=== PATIENT | male | born 1970 | race Caucasian/White ===

== ENCOUNTER 2018-02-03 06:06 | Day surgery (SDC) | payer OTHER ==
[2018-02-02 09:35] VITALS: BMI 29.7
--- NOTE | 2018-02-02 16:58 | HP ---
Admitting History and Physical - Admission Chief Complaint: Nasal obstruction History of Present Illness: 48 yo male with chronic nasal obstruction unrelieved with medical therapy. Pt noted to have deviated septum and enlarged turbinates. History Source: Patient Limitations to Obtaining History: No Limitations - Past Medical History ENT: Yes: Allergic Rhinitis - Past Surgical History Past Surgical History: Yes: None - Smoking History Smoking history: Never smoked Have you smoked in the past 12 months: No - Alcohol/Substance Use Hx Alcohol Use: Yes (SOCIAL) Home Medications - Allergies Allergies/Adverse Reactions: Allergies Allergy/AdvReac Type Severity Reaction Status Date / Time No Known Allergies Allergy Verified 05/24/14 13:23 - Home Medications Home Medications: Ambulatory Orders Oxymetazoline HCl [Nasal [place]] 30 ml NS HS 02/02/18 Review of Systems - Review of Systems HENT: reports: Nasal Congestion Respiratory: reports: Snoring Physical Examination Constitutional: Yes: Well Nourished Eyes: Yes: WNL HENT: Yes: Nasal Congestion, Other (deviated septum, enlarged turbinates with obstruction) Neck: Yes: WNL Cardiovascular: Yes: WNL Respiratory: Yes: WNL Neurological: Yes: Cran Nerves II-XII Intact Problem List - Problems (1) Deviated nasal septum Assessment/Plan: Pt with chronic nasal obstruction due to deviated septum and enlarged inferior turbinates. Pt presents for surgical correction with Septoplasty/SMR of inferior turbinates. Code(s): J34.2 - DEVIATED NASAL SEPTUM Assessment/Plan To OR for septo/SMR
[2018-02-03] MEDS ORDERED: COCAINE HCL 4% TOPICAL SOLUTION 4 ML BOTTLE TP ONE ×2 (07:45→08:18)
[2018-02-03] MEDS ORDERED: MIDAZOLAM HCL 2 MG/2 ML SINGLE DOSE VIAL ONE (07:55)
[2018-02-03] MEDS ORDERED: PROPOFOL 20 ML ONE (07:59)
[2018-02-03] MEDS ORDERED: ROCURONIUM BROMIDE 50 MG/5 ML VIAL ONE (08:00)
[2018-02-03] MEDS ORDERED: LIDOCAINE 1%/EPI 1:100000 (50 ML MULTI DOSE VIAL) INF ONE (08:17)
[2018-02-03] MEDS ORDERED: DESFLURANE GAS 240 ML BOTTLE IH ONE (08:18)
[2018-02-03] MEDS ORDERED: NEOSTIGMINE METHYLSULFATE 0.5 MG/ML - 10 ML MDV ONE (08:38)
[2018-02-03] MEDS ORDERED: BACITRACIN 15 GM TUBE TOPICAL OINTMENT ONE (09:01)
[2018-02-03] MEDS ORDERED: BACITRACIN 15 GM TUBE TOPICAL OINTMENT TP ONE (09:04)
[2018-02-03] MEDS ORDERED: ACETAMINOPHEN 325 MG TABLET (FP) PO PRN (09:21)
--- NOTE | 2018-02-03 09:21 | HP ---
History & Physical Update - History History: No Change - Physical Physical: No Change - Assessment Assessment: No Change - Plan Plan: No Change
[2018-02-03] MEDS ORDERED: PROMETHAZINE HCL 25 MG/1 ML VIAL IVPUSH PRN (09:31)
[2018-02-03] MEDS ORDERED: ONDANSETRON 4 MG/2 ML VIAL IVPUSH PRN (09:31)
[2018-02-03] MEDS ORDERED: oxyCODONE HCL 5 MG TABLET PO PRN (09:31)
[2018-02-03] MEDS ORDERED: LACTATED RINGERS SOLUTION 1,000 ML IV SCH (09:45)
--- NOTE | 2018-02-03 10:26 | OP ---
DATE OF OPERATION: 02/03/2018 PREOPERATIVE DIAGNOSES: 1. Nasal obstruction secondary to deviated nasal septum. 2. Bilateral inferior turbinate hypertrophy with obstruction. POSTOPERATIVE DIAGNOSES: 1. Nasal obstruction secondary to deviated nasal septum. 2. Bilateral inferior turbinate hypertrophy with obstruction. PROCEDURE: 1. Septoplasty. 2. Submucosal resection (SMR) of bilateral inferior turbinates. ANESTHESIA: General, Sue Roberson MD. BLOOD LOSS: 5 mL FINDINGS: 1. Markedly deviated nasal septum with fracture and large spur. 2. Bilateral inferior turbinate hypertrophy with obstruction. INDICATION: Patient is a 48-year-old male with a long history of chronic nasal obstruction unrelieved with medical therapy, who presents for surgical intervention. Risks, benefits, and alternatives of the procedure were all explained to the patient. Questions were answered, and consent was signed. DESCRIPTION OF PROCEDURE: After obtaining informed consent, patient was brought to the operating room, placed on the OR table in supine position. After induction of general endotracheal anesthesia, was prepped and draped in usual sterile fashion. Next, 4% soaked cocaine nasal pledgets were placed in the nasal cavity, followed by injection of 1% lidocaine with epinephrine into the nasal septal flaps and inferior turbinates. After allowing anesthesia to take effect, a number-15 blade was used to make a left hemitransfixion incision. A left mucoperichondrial flap was raised over the severe spur with slight tearing at the inferior aspect. Bony and cartilaginous septum was isolated. Incision was made anteriorly. Through this septal cartilage, a large dorsal caudal L strut was left intact. Opposite side flap was then raised intact. Deviated portion of the septum was then isolated. Using sharp dissection with a swivel knife, the obstructing portion of the cartilaginous septum was removed. The bony portion was removed with a rongeur and osteotome. Once completed, airway was markedly improved. There was no longer significant obstruction. The flaps were then reapproximated with a 4-0 plain gut, quilting stitch, followed by closure of the incision with a 4-0 chromic suture. No active bleeding was seen. Attention was then turned to the inferior turbinates. The left inferior turbinate was medialized. A stab incision was made at the anterior tip. Submucosal dissection was carried out with removal of the anterior portion of the turbinate bone. Submucosal cauterization with suction Bovie cautery was then performed. Flaps were then reapproximated and turbinate lateralized. Attention was then turned to the right inferior turbinate where again it was medialized. Stab incision was made at the anterior tip. Submucosal dissection was carried out with removal of soft tissue, followed by cauterization with the suction Bovie cautery. Again, once completed, flaps were reapproximated, turbinate lateralized. The airway appeared clear. Nasal cavity/nasopharynx was irrigated and suctioned. No active bleeding was seen. Firm Medipore nasal packing was placed, followed by a nasal tip dressing. This ended the procedure. Patient was then awoken from anesthesia, extubated, and transferred to the recovery room, awake, alert, in stable condition. HORTENSIA DAWSON M.D. [id number]
[2018-02-03] MEDS ORDERED: ONDANSETRON 4 MG/2 ML VIAL IVPUSH ONE (10:30)
[2018-02-03] MEDS ORDERED: PROMETHAZINE HCL 25 MG/1 ML VIAL IVPUSH ONE (11:15)
[2018-02-03 13:10] VITALS: TEMP 98.2
[2018-02-03 15:36] VITALS: BP 133/78; PULSE 70
--- NOTE | 2018-02-04 16:46 | PATH ---
Surgical Pathology Report Patient Name: ZONIA ARRINGTON Med. Rec. #: [id number] /Age/Gender: 1970 (Age: 48) / M Account: [id number] Location: [facility] SURGICAL Taken: 02/03/2018 Received: 02/03/2018 Reported: 02/04/2018 Physicians: Moe Munoz M.D. Specimen(s) Received SEPTUM AND TURBINATE Clinical History Deviated nasal septum, hypertrophy nasal turbinates Final Diagnosis SEPTUM AND TURBINATE, SEPTOPLASTY AND NASAL TURBINATE REDUCTION: FRAGMENTS OF BENIGN CARTILAGE, BONE, AND RESPIRATORY MUCOSA. Electronically Signed Rhiannon Fernández M.D. Gross Description Received in formalin, labeled "septum and turbinate" are multiple bone and cartilaginous tissue measuring 2.3 x 2.3 x 0.4 cm. in aggregate. The specimen is entirely submitted in toto in one cassette after calcification. YUE/02/03/2018 martha/02/03/2018
== END 2018-02-03 15:36 | disposition home or self-care (01) ==
LOC: JASU-SURG 06:06
PROVIDERS: ATTEND Otolaryngology
PROC: 09SM0ZZ Reposition Nasal Septum, Open Approach (ICD-10-PCS; principal; 2018-02-03 08:00)
DX: J34.2 Deviated nasal septum (principal); J34.89 Other specified disorders of nose and nasal sinuses; J34.3 Hypertrophy of nasal turbinates
CPT/HCPCS: 88304-TC; 88311-TC; 94760

== ENCOUNTER 2018-03-05 20:22 | Emergency (ER) | payer OTHER ==
[2018-03-05 20:40] VITALS: BMI 29.7
[2018-03-05] MEDS ORDERED: SODIUM CHLORIDE 1,000 ML IV STA (20:57)
[2018-03-05 21:22] LABS: BASO % 0.8 % (0-2.0); EOS % 4.6 % (0-4.5); HEMATOCRIT 40.3 % (35.4-49); HEMOGLOBIN 13.6 GM/dL (11.7-16.9); LYMPH % 51.3 % (8-40); MCH 31.8 pg (25.7-33.7); MCHC 33.7 g/dl (32.0-35.9); MEAN CELL VOLUME 94.4 fl (80-96); MEAN PLT VOLUME 8.8 fl (7.5-11.1); MONO % 4.9 % (3.8-10.2); NEUT % 38.4 % (42.8-82.8); PLATELET COUNT 213 K/MM3 (134-434); RBC 4.27 M/mm3 (4.00-5.60); RDW 13.4 % (11.9-15.9); WHITE BLOOD COUNT 4.6 K/mm3 (4.0-10.0)
--- NOTE | 2018-03-05 21:34 | PDOC ---
History of Present Illness - General Chief Complaint: Nasal Bleeding Stated Complaint: NOSE BLEED Time Seen by Provider: 03/05/18 20:24 History Source: Patient, Spouse Exam Limitations: No Limitations - History of Present Illness Initial Comments: 03/05/18 21:54 48m with pmh of chronic nasal obstruction due to deviated septum and enlarged inferior turbinates s/p surgical correction with Septoplasty/SMR of inferior turbinates a month ago by Dr. Moreno, presents to the ED by ems for epistaxis, resolved at the time of presentation. Had 3 less severe episodes yesterday, one more this morning, went to see Dr. Paz who put some pcking in his left nostil, then had a second episode today bleeding from left nostril again and mouth during which ems was called. Patient now feels weak. Past History - Past Medical History Allergies/Adverse Reactions: Allergies Allergy/AdvReac Type Severity Reaction Status Date / Time No Known Allergies Allergy Verified 03/05/18 20:39 Home Medications: Ambulatory Orders NK [No Known Home Medication] 03/05/18 Anemia: No Asthma: No Cancer: No Cardiac Disorders: No CVA: No COPD: No CHF: No Dementia: No Diabetes: No GI Disorders: No Disorders: No HTN: No Hypercholesterolemia: No Liver Disease: No Seizures: No Thyroid Disease: No - Suicide/Smoking/Psychosocial Hx Smoking History: Never smoked Have you smoked in the past 12 months: No Information on smoking cessation initiated: No Hx Alcohol Use: No Drug/Substance Use Hx: No Substance Use Type: None Review of Systems - Review of Systems Able to Perform ROS?: Yes Is the patient limited [place]ij[place] proficient: No Constitutional: Yes: Weakness HEENTM: Yes: Nose Bleeding, Throat Pain Respiratory: No: Symptoms reported Cardiac (ROS): No: Symptoms Reported ABD/GI: No: Symptoms Reported : No: Symptoms Reported Musculoskeletal: No: Symptoms Reported Integumentary: No: Symptoms Reported Neurological: No: Symptoms reported All Other Systems: Reviewed and Negative *Physical Exam - Vital Signs Last Vital Signs Temp Pulse Resp BP Pulse Ox 98.0 F 61 18 88/56 95 03/05/18 20:39 03/05/18 20:39 03/05/18 20:39 03/05/18 20:39 03/05/18 20:39 - Physical Exam General Appearance: Yes: Nourished, Appropriately Dressed, Mild Distress HEENT: positive: EOMI, JEREMÍAS, Other (dried blood in left nostil. no bleed currently) Respiratory/Chest: positive: Lungs Clear, Normal Breath Sounds. negative: Chest Tender, Respiratory Distress Cardiovascular: positive: Regular Rhythm, S1, S2, Bradycardia Gastrointestinal/Abdominal: positive: Normal Bowel Sounds, Flat, Soft. negative : Tender Musculoskeletal: positive: Normal Inspection. negative: CVA Tenderness Extremity: positive: Normal Capillary Refill, Normal Inspection, Normal Range of Motion Integumentary: positive: Normal Color, Dry, Warm Neurologic: positive: Fully Oriented, Alert, Normal Mood/Affect, Normal Response , Motor Strength 11/29 ED Treatment Course - LABORATORY CBC & Chemistry Diagram: 03/05/18 20:55 03/05/18 20:55 - ADDITIONAL ORDERS Additional order review: 03/05/18 20:55 RBC 4.27 MCV 94.4 MCHC 33.7 RDW 13.4 MPV 8.8 Neutrophils % 38.4 L Lymphocytes % 51.3 H Monocytes % 4.9 Eosinophils % 4.6 H Basophils % 0.8 Medical Decision Making - Medical Decision Making 03/05/18 22:02 EKG: Sinus bradycardia, otherwise normal. No anemia on labs, pending chem and coags. [facility] [employer] consultant for Dr. Paz called back, states patient can go home if not anemic. ok to follow up in office. Hypotension improving with NS fluids. 03/05/18 22:15 All labs negative. *DC/Admit/Observation/Transfer Diagnosis at time of Disposition: Epistaxis - Discharge Dispostion Disposition: HOME Condition at time of disposition: Stable Decision to Admit order: No - Referrals Referrals: Lillie Quach MD [Primary Care Provider] - - Patient Instructions Printed Discharge Instructions: DI for Nosebleed Additional Instructions: Follow up with Dr. Paz tomorrow. Come back to the ER for any new, worsening or concerning symptom. - Post Discharge Activity
[2018-03-05 21:50] LABS: INR 1.13 (0.83-1.09); PROTHROMBIN TIME (PATIENT) 12.8 SEC (9.7-13.0)
[2018-03-05 21:52] LABS: ACTIVATED PTT 25.4 SECONDS (25.2-36.5)
[2018-03-05 22:00] LABS: ALBUMIN 3.5 g/dl (3.4-5.0); ANION GAP 10 (8-16); BILIRUBIN,TOTAL 0.4 mg/dL (0.2-1.0); BLOOD UREA NITROGEN 25 mg/dL (7-18); CALCIUM 8.5 mg/dL (8.5-10.1); CHLORIDE 109 mmol/L (98-107); CO2 27 mmol/L (21-32); CREATININE 1.4 mg/dL (0.7-1.3); GLUCOSE,RANDOM 138 mg/dL (74-106); POTASSIUM 4.2 mmol/L (3.5-5.1); SGOT/AST 19 U/L (15-37); SGPT/ALT 57 U/L (12-78); SODIUM 146 mmol/L (136-145); TOT PROT 6.5 g/dl (6.4-8.2)
[2018-03-05 22:01] LABS: ALK PHOS 58 U/L (45-117)
[2018-03-05 23:33] VITALS: BP 110/76; PULSE 89; TEMP 98.5
--- NOTE | 2018-03-07 09:07 | EKG ---
Test Reason : Blood Pressure : / mmHG Vent. Rate : 054 BPM Atrial Rate : 054 BPM P-R Int : 156 ms QRS Dur : 100 ms QT Int : 442 ms P-R-T Axes : 034 054 027 degrees QTc Int : 419 ms SINUS BRADYCARDIA OTHERWISE NORMAL ECG NO PREVIOUS ECGS AVAILABLE Confirmed by COLEEN GARDNER MD ([id number]) on 03/07/2018 9:07:34 AM Referred By: Confirmed By:COLEEN GARDNER MD
== END 2018-03-05 22:55 | disposition home or self-care (01) ==
LOC: JER 20:22
PROC: 3E0337Z Introduction of Electrolytic and Water Balance Substance into Peripheral Vein, Percutaneous Approach (ICD-10-PCS; principal; 2018-03-05)
DX: R04.0 Epistaxis (principal); R00.1 Bradycardia, unspecified; I95.9 Hypotension, unspecified
CPT/HCPCS: 36415; 80053; 85025; 85610; 85730; 86850; 86900; 86901; 93005; 93010; 99282-25; J7030